=== PATIENT | female | born 1995 | race Caucasian/White ===

== ENCOUNTER 2017-09-19 22:47 | Emergency (ER) | payer OTHER ==
[~2017-09-19] VITALS: Ht 157.5 cm; Wt 73.4 kg
[~2017-09-19 22:47] MED LIST: DOCUSATE SODIU100 MG PO; ENDOCET 5-3251 EACH PO; FERROUS SULFAT325 MG PO; IBUPROFEN800 MG PO; ZANTAC150 MG PO
[2017-09-19 23:17] LABS: HEMATOCRIT 37.3 % (36.0-46.0); MCH 29.8 PG (29.0-34.0); MCHC 33.5 G/DL (30.0-36.0); MCV 88.8 FL (83-99); MEAN PLAT.VOLUME 10.6 uM^3 (9.5-12.4); PLATELET COUNT 240 K/uL (156-360); RBC DIS.WIDTH-CV 12.4 % (11.8-14.6); RBC DIS.WIDTH-SD 40.1 % (39-53); WHITE BLOOD COUNT 12.6 K/uL (4.1-10.2)
[2017-09-19 23:25] LABS: CHLORIDE 106 mEq/L (99-109); POTASSIUM 3.6 mEq/L (3.7-5.4); SODIUM 138 mEq/L (136-147)
[2017-09-19 23:27] LABS: GLUCOSE 93 mg/dL (70-99)
[2017-09-19 23:29] LABS: ANION GAP 11 MEQ/L (2-14)
[2017-09-19 23:31] LABS: GFR ESTIMATE (CALCULATED) > 59 mL/min/
[2017-09-19 23:32] LABS: UREA NITROGEN (BUN) 14 mg/dL (9-23)
[2017-09-19 23:38] LABS: TROP-I INTERPRETATION NEGATIVE; TROPONIN-I < 0.01 ng/mL (0.0-0.30)
[2017-09-20 00:59] LABS: QUANTITATIVE HCG < 4.0 MIU/ML
[2017-09-20] MEDS ORDERED: CYCLOBENZAPRINE5 MG PO (01:16)
[2017-09-20 03:38] LABS: TROP-I INTERPRETATION NEGATIVE; TROPONIN-I < 0.01 ng/mL (0.0-0.30)
[2017-09-20] MEDS ORDERED: FLEXERIL5 MG PO (03:43)
[2017-09-20 03:57] VITALS: BP 114/64
== END 2017-09-20 04:06 | disposition home or self-care (01) ==
LOC: EME 22:47
PROVIDERS: Emergency Medicine
DX: R07.9 Chest pain, unspecified (principal); R00.0 Tachycardia, unspecified; M54.9 Dorsalgia, unspecified; R06.02 Shortness of breath; Z82.49 Family history of ischemic heart disease and other diseases of the circulatory system; F17.200 Nicotine dependence, unspecified, uncomplicated
CPT/HCPCS: 71020; 71275; 80048; 84484; 84702; 85027; 93005; 99281; 99285; J3010; J7030